=== PATIENT | male | born 1955 | race Caucasian/White ===

== ENCOUNTER 2022-08-05 08:22 | Day surgery (SDC) | payer MEDICARE, OTHER ==
[2022-08-01 11:40] VITALS: BMI 45.6
[2022-08-05] MEDS ORDERED: LACTATED RINGERS 1,000 ML IV ONE (09:32)
[2022-08-05 09:35] VITALS: TEMP 97.1
[2022-08-05 10:03] LABS: Glucose,Whole Blood 142 mg/dL (70-110)
[2022-08-05] MEDS ORDERED: PHENYLEPHRINE-0.9% NACL SYG 1,000 MCG/10 ML SYRINGE ONE (10:18)
[2022-08-05] MEDS ORDERED: LIDOCAINE 2% INJ 20 MG/ML (2 ML VIAL) ONE (10:18)
[2022-08-05] MEDS ORDERED: PROPOFOL 10 MG/ML 20 ML VIAL IV ONE (10:18)
--- NOTE | 2022-08-05 10:42 | P.PCN ---
Date of Procedure: 08/05/22 Procedure(s) Performed: BRIEF HISTORY: Patient is a 66-year-old pleasant white male scheduled for an elective colonoscopy as a part of screening for colorectal neoplasia. PROCEDURE PERFORMED: Colonoscopy with snare polypectomy. PREOPERATIVE DIAGNOSIS: Screening for colon cancer. IV sedation per Anesthesia. PROCEDURE: After informed consent was obtained, the patient, was brought into the endoscopy unit. IV sedation was administered by Anesthesia under continuous monitoring. Digital rectal examination was normal. Initially the Olympus CF-160 flexible video colonoscope was then inserted in the rectum, gradually advanced into the cecum without any difficulty. Careful examination was performed as the scope was gradually being withdrawn. Ileocecal valve and the appendiceal orifice were visualized and appeared normal. Prep was excellent. Mucosa of the cecum, appeared normal. In the ascending colon there was a 7 mm polyp that was removed by snare polypectomy. Rest of the ascending colon, transverse colon, descending colon, sigmoid colon, and rectum appeared normal. Retroflexion was performed in the rectum and no lesions were seen. Scattered sigmoid diverticulosis. The patient tolerated the procedure well. IMPRESSION: 7 mm ascending colon polyp status post polypectomy Scattered sigmoid diverticulosis RECOMMENDATIONS: Findings of this examination were discussed with the patient well as his family. He was advised to follow with the biopsy results. If the biopsy reveals adenoma he can have a repeat colonoscopy in 5 years. 5 years.
[2022-08-05 10:48] VITALS: RESP 18
[2022-08-05 11:05] VITALS: PULSE 53
[2022-08-05 11:20] VITALS: BP 104/60
== END 2022-08-05 11:33 | disposition home or self-care (01) ==
LOC: ORWHC2ENDO 08:22
PROVIDERS: ATTEND Internal Medicine Gastroenterology
DX: Z12.11 Encounter for screening for malignant neoplasm of colon (principal); D12.2 Benign neoplasm of ascending colon; K57.30 Diverticulosis of large intestine without perforation or abscess without bleeding; I10 Essential (primary) hypertension; E78.5 Hyperlipidemia, unspecified; G47.33 Obstructive sleep apnea (adult) (pediatric); F17.210 Nicotine dependence, cigarettes, uncomplicated; Z79.899 Other long term (current) drug therapy; Z98.890 Other specified postprocedural states
CPT/HCPCS: 88305; 45385; J2370; J2704; J2001

== ENCOUNTER → 2022-10-16 | Outpatient (CLI) | payer MEDICARE ==
--- NOTE | 2022-10-16 12:13 | P.SLEEP ---
History of Present Illness DATE: 10/16/2022 CONSULTATION/NEW PATIENT EVALUATION HISTORY OF PRESENT ILLNESS/SLEEP-WAKE EVALUATION: 67 year old gentleman had been evaluated in the sleep center for obstructive sleep apnea hypopnea syndrome. Last time patient was seen in our sleep center in 2012 for treatment of obstructive sleep apnea hypopnea syndrome. BPAP unit is extremely old with broken knob. SLEEP SCHEDULE: Usually sleep schedule from 10:30 PM until 7 AM 7 days a week. FALLING ASLEEP: No problems with falling asleep. DURING SLEEP: While on treatment with CPAP patient wakes up once to use the restroom. No history of hypnogogical hallucinations, sleep paralysis, or cataplexy. DURING THE DAY/WAKE STATE: Patient denies significant sleepiness. [place] sleepiness scale is 4. Patient doesn't take naps. PAST MEDICAL HISTORY: Hypertension, hyperlipidemia. PAST SURGICAL HISTORY: Bilateral knee replacement. MEDICATIONS: Nifedipin 60 mg twice a day, lovastatin 40 mg once a day, enalapril/hydrochlorothiazide 10- 25 mg once a day, atenolol 50 mg once a day, aspirin 81 mg once a day, multivitamins. SOCIAL HISTORY: History of smoking for 20 pack years, quit], alcohol consumption occasional. FAMILY HISTORY:Hypertension, sleep apnea]. REVIEW OF SYSTEMS:Snoring without CPAP]. No fevers. No double vision. No recent chest pain. No shortness of breath. No abdominal pain. No bleeding episodes. No blood in urine. No seizure episodes. PHYSICAL EXAMINATION: GENERAL: A pleasant patient without any distress. VITAL SIGNS: BP 108/61] , HR 67] , RR 18] , weight 314.0] pounds, height 5] foot 8] inches, body mass index 47.7] . HEENT: PERRLA, EOMI. Evaluation of oropharynx showed tongue protrudes midline, low position of soft palate Mallampati 4]. NECK: Supple. No JVD. Thyroid is not palpable. 19.75] inches in circumference. LUNGS: Clear to percussion and to auscultation. Good air exchange. No wheezing or rhonchi. HEART: S1, S2 regular. No murmurs, gallops or rubs. ABDOMEN: Soft and nontender. Bowel sounds are present. No organomegaly appreciated. EXTREMITIES: No clubbing or cyanosis. FILTER HELPER: Awake, alert, and oriented x3. Cranial nerves 2 to 7 intact. There is no fasciculation or atrophy noted. No focal deficits observed. ASSESSMENT: 1. History of obstructive sleep apnea diagnosed more than 10 years ago. Patient was not seen in our office for more than 10 years. BPAP unit is extremely old. Extremely low position of soft palate Mallampati 4. Extremely wide neck 19.75 inches. Obstructive sleep apnea-hypopnea syndrome]. 2. Obesity body mass index 47.7]. 3. Hypertension]. 4. Hyperlipidemia]. 5 status post bilateral knee replacement]. PLAN: 1. Polysomnography for evaluation of patient's breathing during sleep. 2. CPAP/BiPAP titration for ablation of effective pressure for correction of respiratory abnormalities of the present time. 3. Preferable position during sleep on the side. 4. No driving if patient feels any sleepiness. Patient is aware of civil and criminal liability for unsafe driving. 5. Sleep hygiene with regular sleep time for at least 7.5-8 hours. 6. Watching weight. Thank you very much for referring this patient for consultation. Sincerely, Angel Luis Villar MD, PhD, FAASM. Diplomat of [employer], Sleep Medicine Board by [employer] Stripper of [facility] [place] Past Medical History Past Medical History: Cancer, Diabetes Mellitus, Hyperlipidemia, Hypertension, Sleep Apnea/CPAP/BIPAP Additional Past Medical History / Comment(s): States borderline diabetes-watches diet., hx skin cancer., bi-pap machine. 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 Past Psychological History: No Psychological Hx Reported Smoking Status: Former smoker Past Alcohol Use History: Occasional Additional Past Alcohol Use History / Comment(s): QUIT SMOKING 30 YEARS AGO, SMOKED LESS THAN 1 PPD. Past Drug Use History: None Reported - Past Family History Mother Family Medical History: Cancer Additional Family Medical History / Comment(s): SKIN CANCER Father Family Medical History: Cancer Additional Family Medical History / Comment(s): PROSTATE CANCER Medications and Allergies Home Medications Medication Instructions Recorded Confirmed Type Aspirin [Adult Low Dose Aspirin EC] 81 mg PO Q48H 08/01/22 08/05/22 History Enalapril/Hydrochlorothiazide 1 tab PO DAILY 08/01/22 08/05/22 History [Enalapril/Hydrochlorothiazide 10-25 mg Tablet] Lovastatin [Mevacor] 40 mg PO DAILY 08/01/22 08/05/22 History Multivitamins, Thera [Multivitamin 1 tab PO DAILY 08/01/22 08/05/22 History (formulary)] NIFEdipine [NIFEdipine ER 120 mg PO DAILY 08/01/22 08/05/22 History (Osmotic)] Vitamin D (Unknown Dose) 1 cap PO DAILY 08/01/22 08/05/22 History atenoloL [Tenormin] 50 mg PO DAILY 08/01/22 08/05/22 History Allergies Allergy/AdvReac Type Severity Reaction Status Date / Time SODIUM PENTOTHAL AdvReac Severe RESPIRATORY Uncoded 08/05/22 09:29 ARREST Sleep Note - Sleep Note Sleep Note: Temperature: Pulse Rate: Respiratory Rate: Blood Pressure: SpO2: Height: Weight: BMI: Neck Circumference:
== END ==
LOC: SLEEP 11:32
PROVIDERS: ATTEND Internal Medicine
DX: G47.33 Obstructive sleep apnea (adult) (pediatric) (principal); E66.9 Obesity, unspecified; Z68.42 Body mass index [BMI] 45.0-49.9, adult; I10 Essential (primary) hypertension; E78.5 Hyperlipidemia, unspecified; Z96.653 Presence of artificial knee joint, bilateral; Z99.89 Dependence on other enabling machines and devices; Z79.82 Long term (current) use of aspirin; Z88.4 Allergy status to anesthetic agent
CPT/HCPCS: 99211

== ENCOUNTER → 2023-02-25 | Outpatient (CLI) | payer MEDICARE ==
--- NOTE | 2023-02-25 11:46 | P.PN ---
Subjective DATE: 02/25/2023 FOLLOW UP VISIT. Patient with obstructive sleep apnea hypopnea syndrome return to sleep center for follow-up visit. Information from previous visit have been reviewed. This is first visit after patient received new BiPAP equipment. Patient is using BPAP equipment every night for the whole night, getting BPAP supplies in time. The patient does not have significant problems with the mask, BPAP unit and humidification. [place] sleepiness scale is 2. I checked information from BPAP unit. BPAP unit pressure maximal inspiratory pressure 15, minimal expiratory pressure 8, pressure-support 4 cm H2O. Usage is 100 % for more then 4 hours, average 8 hours per night. Leak is 6.1 l/m, which is in acceptable range. Apnea Hypopnea Index is 0.3, which is normal. MEDICATIONS:1. Nifedepin 60 mg twice a day 2. Enalapril/hydrochlorothiazide 10-25 mg once a day 3. Atenolol 50 mg once a day 4. Aspirin 81 mg once a day During physical exam: GENERAL: A pleasant patient without any distress. VITAL SIGNS: BP 119/71, HR 75, RR 16, weight 312.4, temperature 98.4, oxygen saturation at room air 92 % . HEENT: PERRLA, EOMI.low position of soft palate, Mallapati 4 . NECK: Supple. No JVD. LUNGS: Clear to percussion and to auscultation. Good air exchange. No wheezing or rhonchi. HEART: S1, S2 regular. ABDOMEN: Soft and nontender. Obese EXTREMITIES: No clubbing or cyanosis. AGRONOMY TEACHER: Awake, alert, and oriented x3. No focal deficit. Impressions: 1. Obstructive sleep apnea-hypopnea syndrome. Patient demonstrated great compliance with treatment, benefiting from treatment. 2. Severe periodic limb movements according to results of sleep test, no complains. 3. Obesity, body mass index around 46. 4. Hypertension. 5. Hyperlipidemia status post bilateral knee replacement. Plan: 1. Continue using PAP equipment every night for the whole night. 2. To change air filter at least 1-2 times per month. 3. PAP unit should stay lower then position of the head. 4. Advised patient to remove all remaining water from humidifier canister daily and make it dry after each usage. Refill canister with fresh distilled water before each usage. 5. Sleep hygiene with regular time in bed for at least 8 hours. 6. Precautions related to driving. No driving if feel any sleepiness. 7. I will maintain prescription for PAP supplies including mask, tube, filters. 8. Follow up visit in 6 months or earlier if patient has any problems. 9. Watching and losing weight. Thank you very much for allowing me to participate in the management of your patient. Angel Luis Villar MD, PhD, FAASM. Diplomat of [place] [employer], Sleep Medicine Board by [employer]eg Technologist of [facility] [place]
== END ==
LOC: 3 N SLEEP 11:13
PROVIDERS: ATTEND Internal Medicine
DX: G47.33 Obstructive sleep apnea (adult) (pediatric) (principal); E66.9 Obesity, unspecified; E78.5 Hyperlipidemia, unspecified; G47.61 Periodic limb movement disorder; I10 Essential (primary) hypertension; Z68.42 Body mass index [BMI] 45.0-49.9, adult; Z79.899 Other long term (current) drug therapy; Z96.653 Presence of artificial knee joint, bilateral
CPT/HCPCS: 99212

== ENCOUNTER → 2023-12-15 | Outpatient (CLI) | payer MEDICARE ==
[2023-12-15 11:39] LABS: INR 0.9 (<1.2); Partial Thromboplastin Time 26.8 sec (22.0-30.0); Prothrombin Time 10.4 sec (10.0-12.5)
[2023-12-15 17:07] LABS: Appearance,Urine Clear (Clear); Bilirubin,Urine Negative (Negative); Blood,Urine Negative (Negative); Color,Urine Yellow (Yellow); Ketones,Urine Negative (Negative); Nitrite,Urine Negative (Negative); Specific Gravity,Urine 1.016 (1.001-1.030); Urobilinogen,Urine 0.2 E.U./DL
[2023-12-15 17:11] LABS: Bacteria,Urine None Seen (None Seen)
[2023-12-15 17:30] LABS: Basophils # (A) 0.08 X 10*3/uL (0.00-0.10); Basophils % (A) 0.9 %; Eosinophils # (A) 0.24 X 10*3/uL (0.04-0.35); Eosinophils % (A) 2.7 %; HCT 45.6 % (39.6-50.0); HGB 15.1 g/dL (13.0-17.0); MCH 30.2 pg (27.0-32.0); MCHC 33.1 g/dL (32.0-37.0); MCV 91.2 FL (80.0-97.0); Mean Platelet Volume 10.6 FL (9.5-12.2); Monocytes # (A) 1.05 X 10*3/uL (0.20-1.00); Monocytes % (A) 11.6 %; NRBC Per 100 WBC 0 X 10*3/uL (0.00-0.01); Neutrophils # (A) 5.83 X 10*3/uL (1.80-7.70); Neutrophils % (A) 64.6 %; Platelet Count 341 X 10*3/uL (140-440); WBC 9.02 X 10*3/uL (4.50-10.00)
[2023-12-15 17:33] LABS: ALT 28 U/L (10-49); AST 23 U/L (14-35); Albumin 4.8 g/dL (3.8-4.9); Alkaline Phosphatase 45 U/L (41-126); BUN/Creat Ratio 17.45 Ratio (12.00-20.00); Blood Urea Nitrogen 19.2 mg/dL (9.0-27.0); Calcium 10.3 mg/dL (8.7-10.3); Carbon Dioxide 27.6 mmol/L (21.6-31.8); Chloride 100 mmol/L (96-109); Globulin 3.2 g/dL (1.6-3.3); Glucose 155 mg/dL (70-110); Potassium 4.2 mmol/L (3.5-5.5); Sodium 141 mmol/L (135-145); Total Bilirubin 0.5 mg/dL (0.3-1.2)
== END | disposition home or self-care (01) ==
LOC: LABWHC1 10:44
PROVIDERS: ATTEND Family Medicine
DX: Z01.812 Encounter for preprocedural laboratory examination (principal)
CPT/HCPCS: 36415; 80053; 81001; 85025; 85610; 85730; 93005

== ENCOUNTER → 2024-02-24 | Outpatient (CLI) | payer MEDICARE ==
--- NOTE | 2024-02-24 11:36 | P.PROGSL ---
Subjective DATE: 02/24/2024 FOLLOW UP VISIT. Patient with obstructive sleep apnea hypopnea syndrome return to sleep center for follow-up visit. Information from previous visit have been reviewed. Patient is using BPAP equipment every night for the whole night, getting PAP supplies in time. The patient does not have significant problems with the mask, PAP unit and humidification. [place] sleepiness scale is 2, which is perfect. I checked information from BPAP unit. BPAP unit pressure maximal inspiratory pressure 15, minimal expiratory pressure 8, pressure support 4, average pressure 13.1/9.1 cm H2O. Usage is 100% for more then 4 hours, average 8.3 hours per night. Leak is in high range 48.4 l/m. Apnea Hypopnea Index is 0.6, which is normal. MEDICATIONS: Please see below During physical exam: GENERAL: A pleasant patient without any distress. VITAL SIGNS: Please see below, weight 298.8. HEENT: PERRLA, EOMI.low position of soft palate, Mallapati 4 . NECK: Supple. No JVD. LUNGS: Clear to percussion and to auscultation. Good air exchange. No wheezing or rhonchi. HEART: S1, S2 regular. ABDOMEN: Soft and nontender. Slightly obese EXTREMITIES: No clubbing or cyanosis. DISH TECHNICIAN: Awake, alert, and oriented x3. No focal deficit. Impressions: 1. Obstructive sleep apnea-hypopnea syndrome. Patient demonstrated great compliance with treatment, benefiting from treatment. 2. Obesity, patient lost 14 pounds comparing with the previous visit. 3. Hypertension. 4. Hyperlipidemia. 5. History of periodic limb movements by results of sleep study, no clinical complaints at the present time. Plan: 1. Continue using PAP equipment every night for the whole night. 2. To change air filter at least 1-2 times per month. 3. PAP unit should stay lower then position of the head. 4. Advised patient to remove all remaining water from humidifier canister daily and make it dry after each usage. Refill canister with fresh distilled water before each usage. 5. Sleep hygiene with regular time in bed for at least 8 hours. 6. Precautions related to driving. No driving if feel any sleepiness. 7. I will maintain prescription for PAP supplies including mask, tube, filters. 8. Follow up visit in 6 months or earlier if patient has any problems. 9. Watching and continue losing weight. Thank you very much for allowing me to participate in the management of your patient. Angel Luis Villar MD, PhD, FAASM. Diplomat of [employer] [employer], Sleep Medicine Board by [employer] Executive Vice President Of Sales of [facility] [place] Objective - Vital Signs Vital Signs: Vital Signs Temp 97.7 F 02/24/24 11:02 Pulse 56 L 02/24/24 11:02 Resp 18 02/24/24 11:02 BP 125/73 02/24/24 11:02 Pulse Ox 93 L 02/24/24 11:02 FiO2 Intake & Output 02/23/24 02/24/24 02/24/24 18:59 06:59 18:59 Weight 135.397 kg Home Medications: Home Medications Medication Instructions Recorded Confirmed Type Aspirin [Adult Low Dose Aspirin EC] 81 mg PO Q48H 08/01/22 08/05/22 History Enalapril/Hydrochlorothiazide 1 tab PO DAILY 08/01/22 02/24/24 History [Enalapril/Hydrochlorothiazide 10-25 mg Tablet] Lovastatin [Mevacor] 40 mg PO DAILY 08/01/22 02/24/24 History Multivitamins, Thera [Multivitamin 1 tab PO DAILY 08/01/22 08/05/22 History (formulary)] NIFEdipine [NIFEdipine ER 120 mg PO DAILY 08/01/22 02/24/24 History (Osmotic)] Vitamin D (Unknown Dose) 1 cap PO DAILY 08/01/22 08/05/22 History atenoloL [Tenormin] 50 mg PO DAILY 08/01/22 02/24/24 History
[2024-02-24 11:42] VITALS: BP 125/73; PULSE 56; RESP 18; TEMP 97.7
== END ==
LOC: 3 N SLEEP 10:42
PROVIDERS: ATTEND Internal Medicine
DX: G47.33 Obstructive sleep apnea (adult) (pediatric) (principal); E66.9 Obesity, unspecified; I10 Essential (primary) hypertension; E78.5 Hyperlipidemia, unspecified; Z87.39 Personal history of other diseases of the musculoskeletal system and connective tissue; Z99.89 Dependence on other enabling machines and devices; Z88.8 Allergy status to other drugs, medicaments and biological substances; Z79.899 Other long term (current) drug therapy; Z68.42 Body mass index [BMI] 45.0-49.9, adult
CPT/HCPCS: 99212